=== PATIENT | female | born 1935 | race Two or more races ===

== ENCOUNTER 2023-10-20 01:52 | Emergency (ER) | payer OTHER ==
[~2023-10-20] VITALS: Ht 165.1 cm; Wt 65.9 kg
[2023-10-20 05:42] VITALS: PULSE 75; RESP 22; O2SAT 97
[2023-10-20 05:42] LABS: Basophils # (auto) 0 10 ^3/uL (0-0.2); Basophils % (auto) 0.2 % (0.0-2.0); Eosinophils # (auto) 0 10 ^3/uL (0-0.8); Eosinophils % (auto) 0.3 % (0.0-7.0); Hematocrit 41.5 % (36.0-46.0); Hemoglobin 13.7 g/dL (12.2-16.2); Lymphocytes # (auto) 1.3 10 ^3/uL (0.4-5.4); Lymphocytes % (auto) 7.7 % (10.0-50.0); Mean Corpuscular Hemoglobin 32.9 pg (28.0-32.0); Mean Corpuscular Hgb Conc. 33.1 g/dL (32.0-36.0); Mean Corpuscular Volume 99.4 fL (80.0-100.0); Monocytes # (auto) 0.9 10 ^3/uL (0-1.3); Monocytes % (auto) 5.3 % (0.0-12.0); Neutrophils # (auto) 14.9 10 ^3/uL (1.6-8.6); Neutrophils % (auto) 86.5 % (37.0-80.0); Nucleated Red Blood Cells % 0.1 %; Red Blood Cells 4.17 10^6/uL (4.0-5.20); Red Cell Distribution Width 13.4 % (11.8-14.3); White Blood Cell 17.2 10^3/uL (4.4-10.8)
[2023-10-20 05:51] LABS: Chloride 99 mmol/L (98-107); INR 1.05 (0.9-1.15); Prothrombin Time 11.1 sec (9.3-11.8); Sodium 135 mmol/L (136-145)
[2023-10-20 05:52] LABS: Anion Gap 9 (5-15); Carbon Dioxide 27 mmol/L (20-30)
[2023-10-20 05:53] LABS: Calcium 10.1 mg/dL (8.7-10.4)
[2023-10-20 05:57] LABS: Glucose 146 mg/dL (74-106)
[2023-10-20 05:58] LABS: BUN/Creatinine Ratio 16.2 (10.0-20.0); Blood Urea Nitrogen 17 mg/dL (9-23)
[2023-10-20 07:35] VITALS: PULSE 77; RESP 24; O2SAT 97
[2023-10-20] MEDS: ONDANSETRON HCL 4 MG/2 ML VIAL IV ONE (07:50)
[2023-10-20] MEDS: MORPHINE SULFATE INJ 2 MG/ml SYRG IV ONE (07:51)
[2023-10-20 09:01] VITALS: BP 124/97; PULSE 78; RESP 18; TEMP 97.6; O2SAT 96
== END 2023-10-20 09:20 | disposition short-term general hospital (02) ==
LOC: ER 01:52 → EDBD 01:52 → ER 09:20
DX: S02.80XA Fracture of other specified skull and facial bones, unspecified side, initial encounter for closed fracture (principal); S06.320A Contusion and laceration of left cerebrum without loss of consciousness, initial encounter; S06.5XAA Traumatic subdural hemorrhage with loss of consciousness status unknown, initial encounter; W01.198A Fall on same level from slipping, tripping and stumbling with subsequent striking against other object, initial encounter; Y93.01 Activity, walking, marching and hiking; Y92.009 Unspecified place in unspecified non-institutional (private) residence as the place of occurrence of the external cause; Y99.8 Other external cause status
CPT/HCPCS: 12013; 36415; 70450; 70486; 72125; 80048; 85025; 85610; 96374; 96375; 99291; J2270; J2405

== ENCOUNTER 2024-02-10 17:38 | Inpatient (IN) | payer OTHER ==
[~2024-02-10] VITALS: Ht 160 cm; Wt 50.5 kg
[2024-02-10] MEDS ORDERED: MORPHINE SULFATE INJ 2 MG/ml SYRG IV PRN (20:45)
[2024-02-10] MEDS ORDERED: ONDANSETRON HCL 4 MG/2 ML VIAL IV PRN (20:45)
[2024-02-10] MEDS ORDERED: NITROGLYCERIN 0.4 MG SL TAB SL PRN (20:45)
[2024-02-10] MEDS ORDERED: ACETAMINOPHEN 325 MG TAB PO PRN (20:45)
[2024-02-10 21:15] VITALS: BP 110/37; PULSE 70; RESP 18; TEMP 98.8; O2SAT 93
[2024-02-10] MEDS: SODIUM CHLORIDE 0.9% 1,000 ML IV SCH (21:15)
[2024-02-10] MEDS ORDERED: LEVO100C3 PO (21:31)
[2024-02-10] MEDS ORDERED: SIMV20TA20 PO (21:31)
[2024-02-10] MEDS ORDERED: SERT50TA PO (21:31)
[2024-02-10] MEDS ORDERED: METO25TA93 PO (21:31)
[2024-02-10] MEDS: SERTRALINE HCL 50 MG TAB PO SCH (22:14)
[2024-02-10] MEDS: LORazepam 2MG/ML-1ML VIAL IV ONE (22:14)
[2024-02-10] MEDS: ATORVASTATIN 20 MG TAB PO SCH (22:14)
[2024-02-11] VITALS (10 sets, daily range): BP systolic 120–161; BP diastolic 48–84; PULSE 70–117; RESP 16–22; TEMP 97.5–98.3; O2SAT 87–97
[2024-02-11 01:11] LABS: Alanine Aminotransferase 18 U/L (7-40); Albumin 4.4 g/dL (3.2-4.8); Alkaline Phosphatase 73 U/L (46-116); Anion Gap 8 (5-15); Aspartate Aminotransferase 46 U/L (13-40); BUN/Creatinine Ratio 21.2 (10.0-20.0); Bilirubin, Total 0.8 mg/dL (0.2-1.0); Blood Urea Nitrogen 18 mg/dL (9-23); Calcium 9.6 mg/dL (8.7-10.4); Carbon Dioxide 23 mmol/L (20-30); Chloride 104 mmol/L (98-107); Glucose 110 mg/dL (74-106); Potassium 3.8 mmol/L (3.5-5.1); Sodium 135 mmol/L (136-145); Total Protein 6.8 g/dL (5.7-8.2)
[2024-02-11 01:17] LABS: Basophils # (auto) 0 10 ^3/uL (0-0.2); Eosinophils # (auto) 0 10 ^3/uL (0-0.8); Eosinophils % (auto) 0.1 % (0.0-7.0); Lymphocytes # (auto) 1.6 10 ^3/uL (0.4-5.4); Mean Corpuscular Hemoglobin 34.3 pg (28.0-32.0); Monocytes # (auto) 1.8 10 ^3/uL (0-1.3)
[2024-02-11 01:18] LABS: Basophils % (auto) 0.4 % (0.0-2.0); Hematocrit 29.9 % (36.0-46.0); Hemoglobin 10.2 g/dL (12.2-16.2); Lymphocytes % (auto) 13.1 % (10.0-50.0); Mean Corpuscular Hgb Conc. 34.1 g/dL (32.0-36.0); Mean Corpuscular Volume 100.5 fL (80.0-100.0); Monocytes % (auto) 15.1 % (0.0-12.0); Neutrophils # (auto) 8.6 10 ^3/uL (1.6-8.6); Neutrophils % (auto) 71.3 % (37.0-80.0); Nucleated Red Blood Cells % 0.1 %; Platelet Count (auto) 163 10^3/uL (140-450); Red Blood Cells 2.97 10^6/uL (4.0-5.20); Red Cell Distribution Width 13.6 % (11.8-14.3)
[2024-02-11] MEDS: ENOXAPARIN SOD 60 MG/0.6 ML SYRINGE SC SCH (01:52)
[2024-02-11] MEDS: LEVOTHYROXINE SODIUM 100 MCG TAB PO SCH (05:30)
[2024-02-11 06:35] LABS: Urine Bacteria MANY /hpf (None Seen); Urine Blood 1+ /uL (Negative); Urine Clarity Turbid (Clear); Urine Color Yellow (Yellow); Urine Mucus FEW (None Seen); Urine Protein, UAD 1+ (Negative); Urine Specific Gravity 1.034 (1.001-1.035); Urine Urobilinogen Normal (Negative); Urine WBC 381 /hpf (0 - 5); Urine WBC Clumps PRESENT /hpf (None Seen); Urine pH 5.5 (5.0-9.0)
[2024-02-11] MEDS: LORazepam 2MG/ML-1ML VIAL IV ONE (06:40)
[2024-02-11] MEDS: cefTRIAXone 1GM/50ML D5W 50 ML IV SCH (08:19)
[2024-02-11] MEDS ORDERED: ENOXAPARIN SOD 60 MG/0.6 ML SYRINGE SC SCH (10:00)
[2024-02-11 10:24] LABS: Basophils # (auto) 0 10 ^3/uL (0-0.2); Basophils % (auto) 0.3 % (0.0-2.0); Eosinophils # (auto) 0 10 ^3/uL (0-0.8); Eosinophils % (auto) 0.1 % (0.0-7.0); Hematocrit 28.9 % (36.0-46.0); Hemoglobin 9.9 g/dL (12.2-16.2); Lymphocytes # (auto) 1.2 10 ^3/uL (0.4-5.4); Lymphocytes % (auto) 9.9 % (10.0-50.0); Mean Corpuscular Hemoglobin 34.1 pg (28.0-32.0); Mean Corpuscular Hgb Conc. 34.3 g/dL (32.0-36.0); Mean Corpuscular Volume 99.4 fL (80.0-100.0); Monocytes # (auto) 1.5 10 ^3/uL (0-1.3); Monocytes % (auto) 11.9 % (0.0-12.0); Neutrophils # (auto) 9.8 10 ^3/uL (1.6-8.6); Neutrophils % (auto) 77.8 % (37.0-80.0); Platelet Count (auto) 158 10^3/uL (140-450); Red Blood Cells 2.91 10^6/uL (4.0-5.20); Red Cell Distribution Width 13.8 % (11.8-14.3); White Blood Cell 12.5 10^3/uL (4.4-10.8)
[2024-02-11] MEDS: ASPirin 81 mg TAB PO SCH (10:27)
[2024-02-11] MEDS: PANTOPRAZOLE 40 MG/10 ML VIAL INJ IV SCH (10:27)
[2024-02-11 10:38] LABS: INR 1.09 (0.9-1.15); Prothrombin Time 11.5 sec (9.3-11.8)
[2024-02-11 10:41] LABS: Anion Gap 9 (5-15); Carbon Dioxide 26 mmol/L (20-30); Chloride 102 mmol/L (98-107); Potassium 3.7 mmol/L (3.5-5.1); Sodium 137 mmol/L (136-145)
[2024-02-11 10:43] LABS: Calcium 9.4 mg/dL (8.7-10.4)
[2024-02-11 10:47] LABS: BUN/Creatinine Ratio 27.4 (10.0-20.0); Blood Urea Nitrogen 23 mg/dL (9-23); Glucose 108 mg/dL (74-106)
[2024-02-11 11:21] LABS: Triglycerides 108 mg/dL (< 150)
[2024-02-11 11:22] LABS: LDL Cholesterol 79 mg/dL (< 100)
[2024-02-11 11:24] LABS: Cholesterol 167 mg/dL (< 200); HDL Cholesterol 67 mg/dL (40-59)
[2024-02-11] MEDS: METOPROLOL SUCCINATE XL 50 MG TAB PO ONE (18:26)
[2024-02-12] VITALS (10 sets, daily range): BP systolic 112–164; BP diastolic 39–82; PULSE 71–97; RESP 17–20; TEMP 97.1–98.5; O2SAT 92–97
[2024-02-12 08:18] LABS: Basophils # (auto) 0 10 ^3/uL (0-0.2); Basophils % (auto) 0.3 % (0.0-2.0); Eosinophils # (auto) 0 10 ^3/uL (0-0.8); Eosinophils % (auto) 0.1 % (0.0-7.0); Hemoglobin 8.2 g/dL (12.2-16.2); Lymphocytes # (auto) 1.1 10 ^3/uL (0.4-5.4)
[2024-02-12 08:20] LABS: Hematocrit 23.8 % (36.0-46.0); Lymphocytes % (auto) 8.4 % (10.0-50.0); Mean Corpuscular Hemoglobin 34.1 pg (28.0-32.0); Mean Corpuscular Hgb Conc. 34.4 g/dL (32.0-36.0); Mean Corpuscular Volume 99.1 fL (80.0-100.0); Monocytes # (auto) 1.7 10 ^3/uL (0-1.3); Monocytes % (auto) 12.7 % (0.0-12.0); Neutrophils # (auto) 10.6 10 ^3/uL (1.6-8.6); Neutrophils % (auto) 78.5 % (37.0-80.0); Platelet Count (auto) 149 10^3/uL (140-450); Red Cell Distribution Width 13.7 % (11.8-14.3); White Blood Cell 13.5 10^3/uL (4.4-10.8)
[2024-02-12 08:31] LABS: Chloride 104 mmol/L (98-107); Potassium 3.3 mmol/L (3.5-5.1); Sodium 138 mmol/L (136-145)
[2024-02-12 08:32] LABS: Anion Gap 12 (5-15); Calcium 8.7 mg/dL (8.7-10.4); Carbon Dioxide 22 mmol/L (20-30)
[2024-02-12 08:37] LABS: BUN/Creatinine Ratio 36.6 (10.0-20.0); Blood Urea Nitrogen 26 mg/dL (9-23); Glucose 78 mg/dL (74-106)
[2024-02-12] MEDS: ENOXAPARIN SOD 40 MG/0.4 ML SYRINGE SC SCH (09:47)
[2024-02-12] MEDS: POTASSIUM CHL 20 Meq TABLET PO ONE (09:48)
[2024-02-12] MEDS: METOPROLOL SUCCINATE XL 50 MG TAB PO SCH (09:48)
[2024-02-12] MEDS ORDERED: SERTRALINE HCL 50 MG TAB PO SCH (10:00)
[2024-02-13] VITALS (7 sets, daily range): BP systolic 109–159; BP diastolic 45–57; PULSE 71–87; RESP 17–18; TEMP 97.7–99.3; O2SAT 95–96
[2024-02-13 07:11] LABS: Basophils # (auto) 0 10 ^3/uL (0-0.2); Eosinophils # (auto) 0.1 10 ^3/uL (0-0.8); Hemoglobin 7.6 g/dL (12.2-16.2); Lymphocytes # (auto) 1.3 10 ^3/uL (0.4-5.4)
[2024-02-13 07:14] LABS: Basophils % (auto) 0.2 % (0.0-2.0); Hematocrit 21.7 % (36.0-46.0); Lymphocytes % (auto) 12.4 % (10.0-50.0); Mean Corpuscular Hemoglobin 35.1 pg (28.0-32.0); Mean Corpuscular Hgb Conc. 35.2 g/dL (32.0-36.0); Mean Corpuscular Volume 99.8 fL (80.0-100.0); Monocytes # (auto) 1.3 10 ^3/uL (0-1.3); Monocytes % (auto) 12.3 % (0.0-12.0); Neutrophils # (auto) 7.6 10 ^3/uL (1.6-8.6); Neutrophils % (auto) 74.1 % (37.0-80.0); Nucleated Red Blood Cells % 0.1 %; Platelet Count (auto) 158 10^3/uL (140-450); Red Blood Cells 2.18 10^6/uL (4.0-5.20); Red Cell Distribution Width 13.9 % (11.8-14.3); White Blood Cell 10.2 10^3/uL (4.4-10.8)
[2024-02-13 07:31] LABS: Calcium 8.9 mg/dL (8.7-10.4); Chloride 108 mmol/L (98-107); Potassium 3.7 mmol/L (3.5-5.1); Sodium 139 mmol/L (136-145)
[2024-02-13 07:32] LABS: Anion Gap 7 (5-15); Carbon Dioxide 24 mmol/L (20-30)
[2024-02-13 07:37] LABS: BUN/Creatinine Ratio 31.7 (10.0-20.0); Blood Urea Nitrogen 19 mg/dL (9-23); Glucose 94 mg/dL (74-106)
[2024-02-13 07:38] LABS: Magnesium 1.8 mg/dL (1.6-2.6)
[2024-02-13] MEDS ORDERED: HALOPERIDOL LACTATE 5 MG/ML INJ VIAL IV PRN (15:30)
[2024-02-13] MEDS: ACETAMINOPHEN 325 MG TAB PO PRN (16:11)
[2024-02-14] VITALS (7 sets, daily range): BP systolic 102–155; BP diastolic 53–61; PULSE 66–82; RESP 16–20; TEMP 97.5–98.5; O2SAT 95–100
[2024-02-14 15:12] LABS: Eosinophils # (auto) 0.3 10 ^3/uL (0-0.8); Eosinophils % (auto) 2.8 % (0.0-7.0); Monocytes # (auto) 1.1 10 ^3/uL (0-1.3); Nucleated Red Blood Cells % 0.1 %
[2024-02-14 15:15] LABS: Basophils # (auto) 0 10 ^3/uL (0-0.2); Basophils % (auto) 0.4 % (0.0-2.0); Hematocrit 21.7 % (36.0-46.0); Hemoglobin 7.7 g/dL (12.2-16.2); Lymphocytes # (auto) 1.5 10 ^3/uL (0.4-5.4); Lymphocytes % (auto) 15.5 % (10.0-50.0); Mean Corpuscular Hemoglobin 35.2 pg (28.0-32.0); Mean Corpuscular Hgb Conc. 35.4 g/dL (32.0-36.0); Mean Corpuscular Volume 99.2 fL (80.0-100.0); Monocytes % (auto) 11.7 % (0.0-12.0); Neutrophils # (auto) 6.7 10 ^3/uL (1.6-8.6); Neutrophils % (auto) 69.6 % (37.0-80.0); Platelet Count (auto) 199 10^3/uL (140-450); Red Blood Cells 2.18 10^6/uL (4.0-5.20); Red Cell Distribution Width 13.8 % (11.8-14.3); White Blood Cell 9.7 10^3/uL (4.4-10.8)
[2024-02-14] MEDS ORDERED: CEPH500C PO (15:56)
== END 2024-02-14 17:46 | disposition home health service (06) | DRG 535 ==
LOC: EAST 20:00 → TELE-EAST 20:38
PROVIDERS: ADMIT Hospitalist; ATTEND Internal Medicine
DX: S32.592A Other specified fracture of left pubis, initial encounter for closed fracture (principal); G93.41 Metabolic encephalopathy; N39.0 Urinary tract infection, site not specified; D72.829 Elevated white blood cell count, unspecified; E03.9 Hypothyroidism, unspecified; F32.A Depression, unspecified; I10 Essential (primary) hypertension; W18.39XA Other fall on same level, initial encounter; I48.91 Unspecified atrial fibrillation; M47.9 Spondylosis, unspecified; E78.5 Hyperlipidemia, unspecified; G30.9 Alzheimer's disease, unspecified; F02.80 Dementia in other diseases classified elsewhere, unspecified severity, without behavioral disturbance, psychotic disturbance, mood disturbance, and anxiety; F41.9 Anxiety disorder, unspecified; Z91.199 Patient's noncompliance with other medical treatment and regimen due to unspecified reason; Z87.891 Personal history of nicotine dependence; Y93.89 Activity, other specified; Y92.89 Other specified places as the place of occurrence of the external cause; Y99.8 Other external cause status
CPT/HCPCS: 36415; 70450; 72125; 80048; 80053; 80061; 81001; 82607; 83605; 83735; 84439; 84443; 84484; 85025; 85610; 87086; 93306; 97163; G0378; J2470

== ENCOUNTER 2024-04-05 22:31 | Emergency (ER) | payer OTHER ==
[~2024-04-05] VITALS: Ht 162.6 cm; Wt 59.0 kg
[~2024-04-05 22:31] MED LIST: CEPH500C PO; LEVO100C3 PO; METO25TA93 PO; SERT50TA PO; SIMV20TA20 PO
--- NOTE | 2024-04-05 22:55 | ED.PDOC ---
History of Present Illness HPI Comments 88 y/o F, with a Hx of DM, HLD, HTN, thyroid disease, and assisted home care, is BIBA for c/o ALOC, today. Per EMS report, patient's son called after endorsing on noticing the patient being "lethargic" and "confused" from her usual baseline since yesterday and is concern on her, possibly, overdosing on her [place] medications after finishing her 28x unit prescription refill she obtained on 03/24/24 2 days early. On scene, EMS staff found patient A&Ox4, with a GCS15, a blood glucose of 122, and all remaining vitals within normal limits. Upon arrival to ED, patient has no reported recent fall injury, sick contact, travel, spoiled food, or substance use/exposure. Patient has no other reported associated symptoms at this time. Chief Complaint: ALOC Time Seen by MD: 22:30 Reviewed Notes: Nurses Notes, Distribution Transformer Assembler Notes, Medications, Allergies Allergies: Coded Allergies: NO KNOWN ALLERGIES (Unverified , 06/22/23) Home Meds Active Scripts Cephalexin Monohydrate (Cephalexin) 500 Mg Cap, 1 CAP PO TID for 3 Days, #9 CAP Prov:ROMEL MESSINA MD 02/14/24 Reported Medications Sertraline Hcl (Zoloft) 50 Mg Tab, 1 TAB PO DAILY, #30 TAB 2 Refills 02/10/24 Simvastatin (Simvastatin) 20 Mg Tab, 1 TAB PO QPM, #30 TAB 5 Refills 02/10/24 Metoprolol Succinate (Metoprolol Succinate Er) 25 Mg Tab, 1 TAB PO DAILY, #30 TAB 5 Refills 02/10/24 Levothyroxine Sodium (Levothyroxine Sodium) 100 Mcg Cap, 100 MCG PO, CAP 02/10/24 Information Source: Patient, Emergency Med Personnel Mode of Arrival: EMS Severity: Moderate Timing: Days Duration: Since onset Prehospital treatment: 12 Lead EKG, Accucheck, Director Funds Development Past Medical History PAST MEDICAL HISTORY: Depression, DM, High Lipids, HTN, Thyroid Surgical History: Denies all surgeries ORE CRUSHER History: No Pertinent ORE CRUSHER History Family History Family History: Unknown Social History Smoker: Non-Smoker Alcohol: Denies ETOH Use Drugs: Denies Drug Use Lives In: Home, Assisted Care Constitutional: denies: chills, diaphoresis, fatigue, fever, malaise, sweats, weakness, others EENTM: denies: blurred vision, double vision, ear bleeding, ear discharge, ear drainage, ear pain, ear ringing, eye pain, eye redness, hearing loss, mouth pain, mouth swelling, nasal discharge, nose bleeding, nose congestion, nose pain, photophobia, tearing, throat pain, throat swelling, voice changes, others Respiratory: denies: cough, hemoptysis, orthopnea, SOB at rest, shortness of breath, SOB with excertion, stridor, wheezing, others Cardiovascular: denies: chest pain, dizzy spells, diaphoresis, Dyspnea on exertion, edema, irregular heart beat, left arm pain, lightheadedness, palpitations, PND, syncope, others Gastrointestinal: denies: abdomen distended, abdominal pain, blood streaked bowels, constipated, diarrhea, dysphagia, difficulty swallowing, hematemesis, melena, nausea, poor appetite, poor fluid intake, rectal bleeding, rectal pain, vomiting, others Genitourinary: denies: abnormal vagina bleeding, burning, dyspareunia, dysuria, flank pain, frequency, hematuria, incontinence, pain, , vagina discharge, urgency, others Neurological: reports: others (ALOC); denies: dizziness, fainting, headache, left sided numbness, left sided weakness, numbness, paresthesia, pre-existing deficit, right sided numbness, right sided weakness, seizure, speech problems, tingling, tremors, weakness Musculoskeletal: denies: back pain, gout, joint pain, joint swelling, muscle pain, muscle stiffness, neck pain, others Integumetry: denies: bruises, change in color, change in hair/nails, dryness, laceration, lesions, lumps, rash, wounds, others Allergic/Immunocompromised: denies: Difficulty Healing, Frequent Infections, Hives, Itching, others Hematologic/Lymphatic: denies: anemia, blood clots, easy bleeding, easy bruising, swollen glands, others Endocrine: denies: excessive hunger, excessive sweating, excessive thirst, excessive urination, flushing, intolerance to cold, intolerance to heat, unexplained weight gain, unexplained weight loss, others Psychiatric: denies: anxiety, bipolar disorder, depression, hopeless, panic disorder, schizophrenia, sleepless, suicidal, others All Other Systems: Reviewed and Negative Physical Exam General Appearance: Moderate Distress HEENT: Normal ENT Inspection, Pharynx Normal, TMs Normal Neck: Full Range of Motion, Non-Tender, Normal, Normal Inspection Respiratory: Chest Non-Tender, Lungs Clear, No Accessory Muscle Use, No Respiratory Distress, Normal Breath Sounds Cardiovascular: No Edema, No JVD, No Murmur, No Gallop, Normal Peripheral Pulses, Regular Rate/Rhythm Breast Exam: Deferred Gastrointestinal: No Organomegaly, Non Tender, No Pulsatile Mass, Normal Bowel Sounds, Soft Genitalia: Deferred Pelvic: Deferred Rectal: Deferred Extremities: No calf tenderness, Normal capillary refill, Normal inspection, Normal range of motion, Non-tender, No pedal edema Musculoskeletal : Apperance: Normal Neurologic: Alert Cerebellar Function: NOT DONE Reflexes: NOT DONE Skin: Normal Color Peripheral Pulses: 3+ Radial (R), 3+ Radial (L) Lymphatic: No Adenopathy Was a procedure done? Was a procedure done?: No Differential Dx Considerations may include: dementia, encephalopathy, electrolyte imbalance, dehydration, UTI X-Ray, Labs, Meds, VS Vital Signs Date Time Temp Pulse Resp B/P (MAP) Pulse Ox O2 Delivery O2 Flow Rate FiO2 04/05/24 23:40 98.2 77 19 163/76 (105) 97 98.2 04/05/24 23:40 77 19 97 Room Air* 0 21 04/05/24 22:39 98.1 72 18 172/86 (114) 97 Lab Test 04/05/24 23:43 Range/Units White Blood Count Pending Red Blood Count Pending Hemoglobin Pending Hematocrit Pending Mean Corpuscular Volume Pending Mean Corpuscular Hemoglobin Pending Mean Corpuscular Hemoglobin Concent Pending Red Cell Distribution Width Pending Platelet Count Pending Mean Platelet Volume Pending Neutrophils (%) (Auto) Pending Lymphocytes (%) (Auto) Pending Monocytes (%) (Auto) Pending Basophils (%) (Auto) Pending Neutrophils # (Auto) Pending Lymphocytes # (Auto) Pending Monocytes # (Auto) Pending Sodium Level Pending Potassium Level Pending Chloride Level Pending Carbon Dioxide Level Pending Anion Gap Pending Blood Urea Nitrogen Pending Creatinine Pending Glomerular Filtration Rate Calc Pending BUN/Creatinine Ratio Pending Serum Glucose Pending Calcium Level Pending Patient alert. Family member called the paramedics for possible altered level of consciousness. She is appropriate. Answering questions. Possible early dementia. Saturation pristine on room air. Moving all extremities. No sign of any injury. Explained to the patient. Waiting for family. CT scan of the head does not show any acute process. Chronic condition. Was told to follow up with her primary care physician. Was told to come back if there is any problem. Time of 1ST Reevaluation: 23:00 Reevaluation 1ST: Improved Patient Education/Counseling: Diagnosis, Treatment Family Education/Counseling: No Family Present Departure 1 Departure Time of Disposition: 23:44 Impression: Primary Impression: Dementia Qualified Codes: F03.90 - Unspecified dementia, unspecified severity, without behavioral disturbance, psychotic disturbance, mood disturbance, and anxiety Disposition: 01 HOME / SELF CARE / HOMELESS Condition: Good Discharged With: Self Critical Care Note Critical Care Time?: No Stability Stability form required: No Heart Score Heart Score: Heart Score Response (Comments) Value History N/A 0 EKG N/A 0 Age N/A 0 Risk Factors N/A 0 Troponin N/A 0 Total 0 I personally scribed for SERGIO LI MD ([email or web address]) on 04/05/24 at 22:55. Electronically submitted by Dexter Winslow ([email or web address]). SERGIO LI MD Apr 05, 2024 22:55
[2024-04-05 23:40] VITALS: PULSE 77; RESP 19; TEMP 98.2; O2SAT 97
[2024-04-06 00:06] LABS: Chloride 100 mmol/L (98-107); Potassium 3.7 mmol/L (3.5-5.1); Sodium 136 mmol/L (136-145)
[2024-04-06 00:07] LABS: Anion Gap 7 (5-15); Carbon Dioxide 29 mmol/L (20-31)
[2024-04-06 00:08] LABS: Calcium 10.3 mg/dL (8.7-10.4)
[2024-04-06 00:11] LABS: Basophils # (auto) 0.1 10 ^3/uL (0-0.2); Basophils % (auto) 0.7 % (0.0-2.0); Eosinophils # (auto) 0.2 10 ^3/uL (0-0.8); Eosinophils % (auto) 2.8 % (0.0-7.0); Hematocrit 38.8 % (36.0-46.0); Hemoglobin 13.1 g/dL (12.2-16.2); Lymphocytes # (auto) 1.6 10 ^3/uL (0.4-5.4); Lymphocytes % (auto) 20.1 % (10.0-50.0); Mean Corpuscular Hgb Conc. 33.7 g/dL (32.0-36.0); Monocytes # (auto) 1.1 10 ^3/uL (0-1.3); Monocytes % (auto) 13.8 % (0.0-12.0); Neutrophils # (auto) 4.9 10 ^3/uL (1.6-8.6); Neutrophils % (auto) 62.6 % (37.0-80.0); Platelet Count (auto) 233 10^3/uL (140-450); Red Blood Cells 3.84 10^6/uL (4.0-5.20); Red Cell Distribution Width 14.6 % (11.8-14.3); White Blood Cell 7.8 10^3/uL (4.4-10.8)
[2024-04-06 00:12] LABS: BUN/Creatinine Ratio 19.7 (10.0-20.0); Blood Urea Nitrogen 15 mg/dL (9-23); Glucose 101 mg/dL (74-106)
--- NOTE | 2024-04-06 01:09 | DVH ---
CLINICAL HISTORY: dementia TECHNIQUE: Helical imaging carried out from skull base to vertex without intravenous contrast. This e xam was performed according to our departmental dose optimization program. Up-to-date CT equipment an d radiation dose reduction techniques are utilized as appropriate. CTDIVol: [CTDIvol] mGy DLP: 954.23 mGy-cm WID: COMPARISON: CT HEAD WITHOUT CONTRAST on DOS: 02/13/24, FINDINGS: There is mild generalized cerebral volume loss with concordant prominence of the subarachnoid spaces and ventricles. There is a dilated perivascular space in the inferior right basal ganglia. There is no midline shift or mass effect. The mattson white matter interfaces are maintained. The basal cisterns are patent. There is no evidence of acute intracranial hemorrhage or extra-axial fluid rachel ection. The visualized paranasal sinuses are well-aerated. Prior ocular lens replacement There are sm all bilateral mastoid air cell effusions IMPRESSION: 1. No acute intracranial abnormality. 2. Mild cerebral volume loss.
[2024-04-06 02:53] VITALS: BP 154/67; PULSE 71; RESP 18
== END 2024-04-06 03:14 | disposition home or self-care (01) ==
LOC: EDBD 22:31 → ER 22:31
DX: F03.90 Unspecified dementia, unspecified severity, without behavioral disturbance, psychotic disturbance, mood disturbance, and anxiety (principal); E11.9 Type 2 diabetes mellitus without complications; E78.5 Hyperlipidemia, unspecified; E03.9 Hypothyroidism, unspecified; Z79.899 Other long term (current) drug therapy
CPT/HCPCS: 36415; 70450; 80048; 85025

== ENCOUNTER 2025-01-04 23:30 | Emergency (ER) | payer OTHER, MEDICAID ==
[~2025-01-04] VITALS: Ht 152.4 cm; Wt 54.5 kg
[~2025-01-04 23:30] MED LIST changes: +ACET-6 PO; +CEFD300C2 PO
[2025-01-04 23:54] VITALS: TEMP 98.1
[2025-01-05 00:10] LABS: Hematocrit 39.5 % (36.0-46.0); Hemoglobin 13.7 g/dL (12.2-16.2); Mean Corpuscular Hemoglobin 33.8 pg (28.0-32.0); Mean Corpuscular Volume 97.6 fL (80.0-100.0); Nucleated Red Blood Cells % 0.1 %
[2025-01-05 00:11] VITALS: RESP 13; O2SAT 96
[2025-01-05 00:19] LABS: Acetaminophen 11.0 UG/ML (10.0-20.0)
[2025-01-05 00:20] LABS: Alanine Aminotransferase 17 U/L (7-40); Albumin 4.7 g/dL (3.2-4.8); Alkaline Phosphatase 86 U/L (46-116); Anion Gap 10 (5-15); BUN/Creatinine Ratio 19.5 (10.0-20.0); Bilirubin, Total 0.5 mg/dL (0.2-1.0); Blood Urea Nitrogen 16 mg/dL (9-23); Calcium 9.4 mg/dL (8.7-10.4); Carbon Dioxide 26 mmol/L (20-31); Chloride 100 mmol/L (98-107); Glucose 103 mg/dL (74-106); Potassium 4.2 mmol/L (3.5-5.1); Total Protein 7.0 g/dL (5.7-8.2)
[2025-01-05 00:24] LABS: Salicylate < 3.0 mg/dL (-30)
[2025-01-05 00:26] LABS: Sodium 136 mmol/L (136-145)
[2025-01-05 01:00] VITALS: BP 176/77; PULSE 70; RESP 20; O2SAT 96
--- NOTE | 2025-01-05 01:30 | ED.PDOC ---
History of Present Illness HPI Comments 89 y/o F is BIBA from private residence for wellness check. Per EMS report, family called after endorsing on patient appearing more tired and slow to respond than her usual baseline. Patient is reported to have been drinking and taken unknown amount of her medications for her comorbidities. No fever, chills, or further associated symptoms reported. Chief Complaint: Medical Clearance Time Seen by MD: 23:30 Reviewed Notes: Nurses Notes, Medications, Allergies Allergies: Coded Allergies: NO KNOWN ALLERGIES (Unverified , 06/22/23) Home Meds Active Scripts Acetaminophen (Acetaminophen Extra Stren) 500 Mg Tab, 500 MG PO QID for 10 Days, #40 TAB Prov:SULAIMAN WALTON MD 04/10/24 Cefdinir (Cefdinir) 300 Mg Cap, 1 CAP PO BID for 7 Days, #14 CAP Prov:SULAIMAN WALTON MD 04/10/24 Cephalexin Monohydrate (Cephalexin) 500 Mg Cap, 1 CAP PO TID for 3 Days, #9 CAP Prov:ROMEL MESSINA MD 02/14/24 Reported Medications Sertraline Hcl (Zoloft) 50 Mg Tab, 1 TAB PO DAILY, #30 TAB 2 Refills 02/10/24 Simvastatin (Simvastatin) 20 Mg Tab, 1 TAB PO QPM, #30 TAB 5 Refills 02/10/24 Metoprolol Succinate (Metoprolol Succinate Er) 25 Mg Tab, 1 TAB PO DAILY, #30 TAB 5 Refills 02/10/24 Levothyroxine Sodium (Levothyroxine Sodium) 100 Mcg Cap, 100 MCG PO, CAP 02/10/24 Information Source: Patient Mode of Arrival: EMS Duration: Since onset Prehospital treatment: None Past Medical History PAST MEDICAL HISTORY: Depression, DM, High Lipids, HTN, Thyroid Surgical History: Denies all surgeries MID LEVEL GAME DESIGNER History: No Pertinent MID LEVEL GAME DESIGNER History Family History Family History: Unknown Social History Smoker: Non-Smoker Alcohol: Denies ETOH Use Drugs: Denies Drug Use Lives In: Home, Assisted Care All Other Systems: Reviewed and Negative (Comprehensive systems review obtained and negative except for what is stated in the HPI.) Physical Exam General Appearance: No Apparent Distress, Normal, Other (elderly appearing) HEENT: Normal ENT Inspection, Pharynx Normal, TMs Normal Neck: Full Range of Motion, Non-Tender, Normal, Normal Inspection Respiratory: Chest Non-Tender, Lungs Clear, No Accessory Muscle Use, No Respiratory Distress, Normal Breath Sounds Cardiovascular: No Edema, No JVD, No Murmur, No Gallop, Normal Peripheral Pulses, Regular Rate/Rhythm Breast Exam: Deferred Gastrointestinal: No Organomegaly, Non Tender, No Pulsatile Mass, Normal Bowel Sounds, Soft Genitalia: Deferred Pelvic: Deferred Rectal: Deferred Extremities: No calf tenderness, Normal capillary refill, Normal inspection, Normal range of motion, Non-tender, No pedal edema Musculoskeletal : Apperance: Normal Neurologic: Alert, import export coordinator II-XII nml as Tested, No Motor Deficits, Normal Affect, Normal Mood, No Sensory Deficits Cerebellar Function: Normal Reflexes: Normal Skin: Dry, Normal Color, Warm Lymphatic: No Adenopathy Was a procedure done? Was a procedure done?: No Differential Dx Considerations may include: UTI, viral syndrome, electrolyte imbalance, encephalopathy, among others X-Ray, Labs, Meds, VS Vital Signs Date Time Temp Pulse Resp B/P (MAP) Pulse Ox O2 Delivery O2 Flow Rate FiO2 01/05/25 01:00 70 20 176/77 (110) 96 01/05/25 00:11 13 96 Room Air* 0 21 01/04/25 23:54 98.1 73 16 185/79 (114) 95 98.1 01/04/25 23:46 73 01/04/25 23:35 98.4 76 18 184/87 95 98.4 Lab Test 01/04/25 23:51 Range/Units White Blood Count 7.5 4.4-10.8 10^3/uL Red Blood Count 4.04 4.0-5.20 10^6/uL Hemoglobin 13.7 12.2-16.2 g/dL Hematocrit 39.5 36.0-46.0 % Mean Corpuscular Volume 97.6 80.0-100.0 fL Mean Corpuscular Hemoglobin 33.8 H 28.0-32.0 pg Mean Corpuscular Hemoglobin Concent 34.7 32.0-36.0 g/dL Red Cell Distribution Width 14.2 11.8-14.3 % Platelet Count 213 140-450 10^3/uL Mean Platelet Volume 8.2 6.9-10.8 fL Neutrophils (%) (Auto) 62.5 37.0-80.0 % Lymphocytes (%) (Auto) 23.2 10.0-50.0 % Monocytes (%) (Auto) 11.1 0.0-12.0 % Eosinophils (%) (Auto) 2.8 0.0-7.0 % Basophils (%) (Auto) 0.4 0.0-2.0 % Neutrophils # (Auto) 4.7 1.6-8.6 10 ^3/uL Lymphocytes # (Auto) 1.7 0.4-5.4 10 ^3/uL Monocytes # (Auto) 0.8 0-1.3 10 ^3/uL Eosinophils # (Auto) 0.2 0-0.8 10 ^3/uL Basophils # (Auto) 0 0-0.2 10 ^3/uL Nucleated Red Blood Cells 0.1 % Sodium Level 136 136-145 mmol/L Potassium Level 4.2 3.5-5.1 mmol/L Chloride Level 100 98-107 mmol/L Carbon Dioxide Level 26 20-31 mmol/L Anion Gap 10 5-15 Blood Urea Nitrogen 16 9-23 mg/dL Creatinine 0.82 0.550-1.02 mg/dL Glomerular Filtration Rate Calc 69 >90 mL/min BUN/Creatinine Ratio 19.5 10.0-20.0 Serum Glucose 103 74-106 mg/dL Calcium Level 9.4 8.7-10.4 mg/dL Total Bilirubin 0.5 0.2-1.0 mg/dL Aspartate Amino Transferase (AST) 28 13-40 U/L Alanine Aminotransferase (ALT) 17 7-40 U/L Alkaline Phosphatase 86 46-116 U/L Total Protein 7.0 5.7-8.2 g/dL Albumin 4.7 3.2-4.8 g/dL Salicylates Level < 3.0 -30 mg/dL Acetaminophen Level 11.0 10.0-20.0 UG/ML Plasma/Serum Blood Alcohol < 3.0 <10 mg/dL Time of 1ST Reevaluation: 00:00 Reevaluation 1ST: Unchanged Patient Education/Counseling: Diagnosis, Treatment, Need For Follow Up Family Education/Counseling: No Family Present SEPSIS Sepsis Screen Date sepsis recognized/suspect: Jan 05, 2025 Time Sepsis recognized/suspect: 0000 Recent Procedure: No On Antibiotic Therapy: No Respiratory Rate >20: No Heart Rate >90: No Temp<36 C (96.8 F) or >38.3 C: No SBP <90 or MAP <65 mmHG: No New Acute Mental Status Change: No Is the patient on CPAP, BIPAP,: No Physician Orders Drug Screen (01/04/25 23:35) Urinalysis (01/04/25 23:35) Electrocardigram (01/05/25 00:09) Vital Signs Date Time Temp Pulse Resp B/P (MAP) Pulse Ox O2 Delivery O2 Flow Rate FiO2 01/05/25 01:00 70 20 176/77 (110) 96 01/05/25 00:11 13 96 Room Air* 0 21 01/04/25 23:54 98.1 73 16 185/79 (114) 95 98.1 01/04/25 23:46 73 01/04/25 23:35 98.4 76 18 184/87 95 98.4 Laboratory Tests Test 01/04/25 23:51 White Blood Count 7.5 10^3/uL (4.4-10.8) Departure 1 Departure Time of Disposition: 02:00 Impression: Primary Impression: Alzheimers disease Disposition: 01 HOME / SELF CARE / HOMELESS Condition: Stable Discharged With: Self, Relative Critical Care Note Critical Care Time?: No Stability Stability form required: No Heart Score Heart Score: Heart Score Response (Comments) Value History N/A 0 EKG N/A 0 Age N/A 0 Risk Factors N/A 0 Troponin N/A 0 Total 0 I personally scribed for NITHYA ALFARO MD ([email or web address]) on 01/05/25 at 01:30. Electronically submitted by Dexter Winslow [email or web address]). NITHYA ALFARO MD Jan 05, 2025 01:30
--- NOTE | 2025-01-05 10:50 | ECG ---
[facility] Test Date: 2025-01-04 Test Time: 23:46:46 Pat Name: MARCIA GOMEZ Department: [facility] ED Patient ID: [id number] Room: Gender: F Event Sales Representative: RAVINDER : 1935 Requested By: NITHYA ALFARO Order Number: [id number] Reading MD: Ry Mead Measurements Intervals [place] Rate: 73 P: 64 [place]: 140 QRS: -29 QRSD: 133 T: 96 QT: 477 QTc: 526 Interpretive Statements Sinus rhythm Atrial premature complexes Left bundle branch block Electronically Signed On 01-05-2025 22:59:16 PDT by Ry Mead Please click the below link to view image of tracing.
== END 2025-01-05 02:39 | disposition home or self-care (01) ==
LOC: ER 23:30 → EDBD 23:30 → ER 01-05 02:39
DX: G30.9 Alzheimer's disease, unspecified (principal); F32.A Depression, unspecified; E11.9 Type 2 diabetes mellitus without complications; E78.5 Hyperlipidemia, unspecified; I10 Essential (primary) hypertension; Z79.899 Other long term (current) drug therapy
CPT/HCPCS: 36415; 80053; 80320; 80329; 85025; 93005